=== PATIENT | female | born 1985 ===

== ENCOUNTER 2024-04-06 12:40 | Emergency (ER) | payer MEDICAID ==
[~2024-04-06] VITALS: Ht 142.2 cm; Wt 93.6 kg
[2024-04-06 12:47] VITALS: BP 134/96; PULSE 103; RESP 24; TEMP 97.8; O2SAT 99
== END 2024-04-06 16:07 | disposition left against medical advice (07) ==
LOC: ER 12:41
DX: J11.1 Influenza due to unidentified influenza virus with other respiratory manifestations (principal); Z53.21 Procedure and treatment not carried out due to patient leaving prior to being seen by health care provider